=== PATIENT | male | born 1955 | race Caucasian/White ===

== ENCOUNTER 2017-03-25 05:49 | Inpatient (IN) | payer OTHER ==
[2017-03-20 14:47] VITALS: BP 173/112
[~2017-03-25] VITALS: Ht 167.6 cm; Wt 101.3 kg
[~2017-03-25 05:49] MED LIST: LOSA100T6 PO; METO50TA82 PO; NAPR500T PO; TIZA4TAB PO; TRAM50TA2 PO
[2017-03-25] MEDS ORDERED: TRANEXAMIC ACID 100 MG/ML, 10ML ONE (06:38)
[2017-03-25] MEDS ORDERED: VANCOMYCIN 1,000 MG ONE (06:38)
[2017-03-25] MEDS ORDERED: LACTATED RINGERS 1,000 ML IV SCH (06:43)
[2017-03-25] MEDS ORDERED: HYDROmorphone 1 MG/ML, 1ML ONE ×2 (07:00→10:38)
[2017-03-25] MEDS ORDERED: FENTANYL PF 100 MCG/2ML ONE ×2 (07:00→09:54)
[2017-03-25] MEDS ORDERED: LIDOCAINE 1%, 2ML SQ PRN (07:00)
[2017-03-25] MEDS ORDERED: VANCOMYCIN PER PHARMACY MC PRN (07:00)
[2017-03-25] MEDS ORDERED: VANCOMYCIN 1,800 MG in SODIUM CHLORIDE 0.9% 250 ML IV ONE (07:00)
[2017-03-25] MEDS ORDERED: MIDAZOLAM 1 MG/ML, 2ML ONE (07:00)
[2017-03-25] MEDS ORDERED: PNEUMOCOCCAL 23 VACCINE IM-VACC ONE (07:30)
[2017-03-25] MEDS ORDERED: ONDANSETRON 2MG/ML, 2ML ONE (07:42)
[2017-03-25] MEDS ORDERED: FLU VACC QS2017-18 (36MOS+) UP/PF 0.5 ML IM-VACC ONE (08:00)
[2017-03-25] MEDS ORDERED: PROPOFOL 10 MG/ML, 20ML ONE (08:04)
[2017-03-25] MEDS ORDERED: SUCCINYLCHOLINE 20 MG/ML, 10ML ONE (08:04)
[2017-03-25] MEDS ORDERED: ROCURONIUM 10 MG/ML,10ML ONE ×2 (08:04)
[2017-03-25] MEDS ORDERED: ACETAMINOPHEN 325 MG TABLET PO PRN (08:30)
[2017-03-25] MEDS ORDERED: ONDANSETRON 2MG/ML, 2ML IVPush PRN (08:30)
[2017-03-25] MEDS ORDERED: OXYcodone 5 MG/5 ML ORAL.SOL UDC PO PRN (08:30)
[2017-03-25] MEDS ORDERED: METOCLOPRAMIDE 5 MG/ML, 2ML IV PRN (08:30)
[2017-03-25] MEDS ORDERED: hydrALAzine 20 MG/ML, 1ML IV PRN (08:30)
[2017-03-25] MEDS ORDERED: LABETALOL 5MG/ML, 20ML IV PRN (08:30)
[2017-03-25] MEDS ORDERED: ACETAMINOPHEN 325 MG TABLET ONE (09:54)
[2017-03-25] MEDS ORDERED: hydrALAzine 20 MG/ML, 1ML ONE (09:54)
[2017-03-25] MEDS ORDERED: HYDROcodone/APAP 7.5-325MG/15ML UDC ONE (09:54)
[2017-03-25] MEDS: FENTANYL PF 100 MCG/2ML IV PRN ×2 (09:55→10:15)
[2017-03-25] MEDS ORDERED: ALUMINUM/MAG/SIMETHICONE 30 ML UDC PO PRN (10:00)
[2017-03-25] MEDS ORDERED: HYDROmorphone 1 MG/ML, 1ML IV PRN (10:00)
[2017-03-25] MEDS ORDERED: DIAZEPAM 5 MG TABLET PO PRN (10:00)
[2017-03-25] MEDS ORDERED: PROMETHAZINE 25 MG/ML, 1ML IM PRN (10:00)
[2017-03-25] MEDS ORDERED: MAGNESIUM HYDROXIDE 8%, 30ML UDC PO PRN (10:00)
[2017-03-25] MEDS ORDERED: DIPHENHYDRAMINE 25 MG CAPSULE PO PRN (10:00)
[2017-03-25] MEDS ORDERED: ZOLPIDEM 5MG TABLET PO PRN (10:00)
[2017-03-25] MEDS ORDERED: ONDANSETRON 4 MG TABLET PO PRN (10:00)
[2017-03-25] MEDS ORDERED: LORazepam 1MG TABLET PO PRN (10:00)
[2017-03-25] MEDS ORDERED: SENNA/DOCUSATE TABLET PO PRN (10:00)
[2017-03-25] MEDS ORDERED: ONDANSETRON 2MG/ML, 2ML IV PRN (10:00)
[2017-03-25] MEDS ORDERED: PROMETHAZINE 12.5 MG SUPP PR PRN (10:00)
[2017-03-25] MEDS ORDERED: BISACODYL 10 MG SUPP PR PRN (10:00)
[2017-03-25] MEDS ORDERED: HYDROcodone/APAP 7.5-325MG/15ML UDC PO PRN (10:30)
[2017-03-25] MEDS ORDERED: KETOROLAC 30 MG/1 ML ONE (10:38)
[2017-03-25] MEDS: HYDROmorphone 1 MG/ML, 1ML IV PRN ×2 (10:40→10:45)
[2017-03-25 12:00] VITALS: BP 132/99
[2017-03-25] MEDS: SODIUM CHLORIDE 0.9% 1,000 ML IV SCH ×2 (12:42→22:30)
[2017-03-25 14:45] VITALS: BP 136/88
[2017-03-25] MEDS: CEFAZOLIN PMX 2GM/50ML 50 ML IVPB SCH (15:59)
[2017-03-25] MEDS: HYDROmorphone 2MG TABLET PO PRN ×2 (16:00→20:05)
[2017-03-25] MEDS: ACETAMINOPHEN 650 MG/20.3 ML UDC PO SCH (17:51)
[2017-03-25] MEDS: TAMSULOSIN 0.4 MG CAP.ER.24H PO SCH (17:51)
[2017-03-25 19:27] VITALS: BP 144/88
[2017-03-25] MEDS: DOCUSATE 100 MG CAPSULE PO SCH (20:04)
[2017-03-25] MEDS: METOPROLOL TARTRATE 50 MG TABLET PO SCH (20:05)
[2017-03-26] MEDS: HYDROmorphone 2MG TABLET PO PRN ×6 (00:03→23:51)
[2017-03-26] MEDS: CEFAZOLIN PMX 2GM/50ML 50 ML IVPB SCH (00:03)
[2017-03-26] MEDS ORDERED: ACETAMINOPHEN 500 MG TABLET ONE ×2 (01:44→10:12)
[2017-03-26] MEDS: ACETAMINOPHEN 650 MG/20.3 ML UDC PO SCH ×3 (02:00→18:19)
[2017-03-26 02:04] VITALS: BP 153/91
[2017-03-26 05:10] LABS: BLOOD UREA NITROGEN 27 mg/dL (7-18)
[2017-03-26] MEDS: SODIUM CHLORIDE 0.9% 1,000 ML IV SCH ×2 (05:57→16:15)
[2017-03-26] MEDS: ASPIRIN 81 MG TABLET EC PO SCH (06:02)
[2017-03-26 08:10] VITALS: BP 130/76
[2017-03-26] MEDS: TAMSULOSIN 0.4 MG CAP.ER.24H PO SCH (08:38)
[2017-03-26] MEDS: DOCUSATE 100 MG CAPSULE PO SCH ×2 (08:38→19:45)
[2017-03-26 08:45] VITALS: BP 124/67
[2017-03-26] MEDS ORDERED: LOSARTAN 50MG TABLET PO SCH ×2 (09:00→21:00)
[2017-03-26] MEDS: KETOROLAC 30 MG/1 ML IV SCH ×2 (10:23→18:20)
[2017-03-26 14:20] VITALS: BP 103/67
[2017-03-26 19:38] VITALS: BP 132/66
[2017-03-26] MEDS: METOPROLOL TARTRATE 50 MG TABLET PO SCH (19:45)
[2017-03-27] MEDS: SODIUM CHLORIDE 0.9% 1,000 ML IV SCH ×2 (00:36→08:25)
[2017-03-27] MEDS: KETOROLAC 30 MG/1 ML IV SCH (02:31)
[2017-03-27] MEDS: ACETAMINOPHEN 650 MG/20.3 ML UDC PO SCH ×2 (02:31→10:30)
[2017-03-27 02:34] VITALS: BP 133/85
[2017-03-27] MEDS: HYDROmorphone 2MG TABLET PO PRN ×2 (04:16→08:25)
[2017-03-27] MEDS: ASPIRIN 81 MG TABLET EC PO SCH (06:28)
[2017-03-27 07:40] VITALS: BP 123/74
[2017-03-27] MEDS: DOCUSATE 100 MG CAPSULE PO SCH (08:25)
[2017-03-27] MEDS: TAMSULOSIN 0.4 MG CAP.ER.24H PO SCH (08:25)
[2017-03-27] MEDS ORDERED: ASPI-621 PO (09:23)
[2017-03-27] MEDS ORDERED: DOCU-131 PO (09:24)
[2017-03-27] MEDS ORDERED: HYDR2TAB29 PO (09:25)
[2017-03-27] MEDS ORDERED: CELE200C PO (09:27)
[2017-03-27] MEDS ORDERED: ACET-1757 PO (09:29)
[2017-03-27 10:16] VITALS: BP 125/68
== END 2017-03-27 10:36 | disposition home or self-care (01) | DRG 470 ==
LOC: ORIP 05:49 → 4NOR 11:50
PROVIDERS: ADMIT Orthopaedic Surgery Adult Reconstructive Orthopaedic Surgery; ATTEND Orthopaedic Surgery Adult Reconstructive Orthopaedic Surgery
PROC: 0SR904A Replacement of Right Hip Joint with Ceramic on Polyethylene Synthetic Substitute, Uncemented, Open Approach (ICD-10-PCS; principal; 2017-03-25 07:30)
DX: M16.11 Unilateral primary osteoarthritis, right hip (principal); I10 Essential (primary) hypertension; M17.11 Unilateral primary osteoarthritis, right knee; Z96.652 Presence of left artificial knee joint
CPT/HCPCS: 36415; 72170; 80048; 82040; 85018; 86850; 86900; 90686; C1713; J0690; J1170; J1885; J2250; J2405; J2550; J2704; J3010; J3370; C1776; J0330; J0360; J7030; J7050; J7120